=== PATIENT | female | born 1970 | race Two or more races ===

== ENCOUNTER → 2023-12-27 13:18 | Outpatient (REF) | payer BC, SELFPAY | LOC: RAD 13:18 | PROVIDERS: ATTENDING PHYSICIAN Obstetrics & Gynecology Gynecology; FAMILY PHYSICIAN Family Medicine | DX: R93.89 Abnormal findings on diagnostic imaging of other specified body structures (principal) | CPT/HCPCS: 76830; 76856 ==

== ENCOUNTER 2024-06-13 13:06 | Outpatient (RCR) | payer BC, SELFPAY | END 2024-06-13 23:59 | disposition home or self-care (01) | LOC: RPT 13:06 | PROVIDERS: ATTENDING PHYSICIAN Orthopaedic Surgery; FAMILY PHYSICIAN Family Medicine | DX: M54.50 Low back pain, unspecified (principal); M54.51 Vertebrogenic low back pain (principal); Z73.6 Limitation of activities due to disability | CPT/HCPCS: 97110; 97161 ==

== ENCOUNTER 2024-07-22 16:16 | Outpatient (RCR) | payer BC, SELFPAY | END 2024-07-22 23:59 | disposition home or self-care (01) | LOC: RPT 16:16 | PROVIDERS: ATTENDING PHYSICIAN Orthopaedic Surgery; FAMILY PHYSICIAN Family Medicine | DX: M54.51 Vertebrogenic low back pain (principal); Z73.6 Limitation of activities due to disability; R26.2 Difficulty in walking, not elsewhere classified; M62.81 Muscle weakness (generalized) | CPT/HCPCS: 97110; 97112; 97140 ==

== ENCOUNTER 2024-07-25 14:04 | Outpatient (RCR) | payer BC, SELFPAY | END 2024-07-26 07:01 | disposition home or self-care (01) | LOC: RPT 14:04 | PROVIDERS: ATTENDING PHYSICIAN Pain Medicine Interventional Pain Medicine; FAMILY PHYSICIAN Family Medicine | DX: M54.51 Vertebrogenic low back pain (principal); Z73.6 Limitation of activities due to disability | CPT/HCPCS: 97110; 97112; 97140 ==

== ENCOUNTER → 2024-10-03 10:46 | Outpatient (REF) | payer BC, SELFPAY | LOC: RAD 10:46 | PROVIDERS: ATTENDING PHYSICIAN Physician Assistant; FAMILY PHYSICIAN Family Medicine | DX: M25.50 Pain in unspecified joint (principal); M79.641 Pain in right hand | CPT/HCPCS: 73130 ==

== ENCOUNTER → 2025-06-05 06:52 | Outpatient (REF) | payer BC, SELFPAY | LOC: RAD 06:52 | PROVIDERS: ATTENDING PHYSICIAN Family Medicine | DX: E05.90 Thyrotoxicosis, unspecified without thyrotoxic crisis or storm (principal) | CPT/HCPCS: 78014; A9516 ==

== ENCOUNTER 2025-06-22 09:33 | Emergency (ER) | payer BC, SELFPAY ==
[2025-06-22 09:40] VITALS: BP 124/70
[2025-06-22 10:21] VITALS: BMI 26.6
[2025-06-22 10:42] VITALS: BP 104/81
[2025-06-22] MEDS: MAALOX 50 PO (10:42)
--- NOTE | 2025-06-22 10:46 | ED.GENMED ---
History of Present Illness
General
Chief Complaint: Chest Pain
Source: patient
Time Seen by Provider: 06/22/25 09:53
History of Present Illness
History of Present Illness:
55-year-old female with past medical history of recently diagnosed hyperthyroidism, had been started on methimazole and metoprolol, presenting to the emergency department for evaluation of upper abdomen/lower chest pain which initially started as a
more intense pain this morning around 530, has since subsided a little bit but still a pressure-like sensation which is what prompted her to come to the ER. She does note about 2 days ago started feeling a pruritic sensation on her scalp and this
sensation has started to travel throughout the rest of her body. She started taking some Benadryl and Zyrtec, contacted her primary care provider today who advised she stop taking the methimazole and due to the chest discomfort also recommended she
come to the ER. She denies any history of similar. 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 She denies any fevers or infectious symptoms, recent travel, lower extremity pain, cough, hemoptysis, pleurisy or any other concerns.
Past History
Past History
ED Past Medical History: Hyperthyroidism and Psychiatric
ED Past Surgical History: Tonsilectomy
Social History
Tobacco: Non-smoker
Alcohol: Occasional
Drug: None
Personal:
Living: with family
Employment: Employed
Review of Systems
Review of Systems
All Other Systems: ROS reviewed and negative except as documented in HPI and ROS
Phy Exam
Physical Exam
Physical Exam:
GENERAL: Alert , in no apparent distress
HEAD: Normocephalic atraumatic
EYE: conjunctiva clear
NECK: Supple
ENT: o/p clr, mmm.
CARDIAC: Regular rate and rhythm
LUNGS: Clear breath sounds bilaterally, no acute respiratory distress, no wheezes/rales/rhonchi
NEUROLOGICAL: Alert and oriented
SKIN: Warm and dry, skin intact.
MUSCULOSKELETAL: well perfused.
PSYCH: Normal and appropriate interaction.
Scores
Heart Failure Risk
Heart Failure Risk Score: Not Applicable
Heart Score for Chest Pain Patients
STEMI patient?: No
History: Slightly or Non-Suspicious
ECG: Normal
Age: >45 - <65 years
Risk Factors: No Risk Factors
Troponin: </= Normal Limit
Heart Score for Chest Pain Patients: 1
Heart Score Risk: 2.5% MACE over next 6 weeks
Withdrawal Assessment of Alcohol
Withdrawal Assessment Completed?: Not applicable
Course
Orders/Labs/Results
Orders:
Orders
06/22/25 09:34
ECG [Electrocardiogram (*1)] Urgent
Reason for Study: Chest Pain
EKG- Treatment ONCE
06/22/25 10:27
Mag Hydrox/Al Hydrox/Simeth [Maalox] 30 ml Phenobarb/Hyoscy/Atropine/Scop [] 10 ml Viscous Lidocaine 2% [Xylocaine Viscous Cup] 10 ml PO NOW
06/22/25 10:36
Complete Blood Count/With Diff Urgent
Comprehensive Metabolic Panel Urgent
D-Dimer Urgent
Lipase Urgent
Troponin I Urgent
06/22/25 10:38
Mag Hydrox/Al Hydrox/Simeth [Maalox] 30 ml .ROUTE .STK-MED ONE
Phenobarb/Hyoscy/Atropine/Scop [] 10 ml .ROUTE .STK-MED ONE
06/22/25 10:39
Viscous Lidocaine 2% [Xylocaine Viscous Cup] 15 ml .ROUTE .STK-MED ONE
06/22/25 11:08
Acetaminophen [Tylenol] 650 mg PO NOW STA
06/22/25 11:09
Acetaminophen [Tylenol] 650 mg .ROUTE .STK-MED ONE
CR Chest - 2 Views Urgent
Comment:
Reason For Exam: upper abd/chest pain
06/22/25 12:43
Troponin I Urgent
Abnormal Lab Results
06/22/25
10:36
WBC 4.4 L 10^3/uL
(4.8-10.8)
Hct 36.7 L %
(37.0-47.0)
MCV 76.9 L fL
(81.0-99.0)
MCH 25.6 L pg
(27.0-31.0)
Absolute Lymphs (auto) 0.9 L 10^3/uL
(1.2-3.4)
ALT 46 H U/L
(0-35)
Total Protein 6.0 L g/dl
(6.3-8.2)
06/22/25 10:36
06/22/25 10:36
Vital Signs
Initial and Last Documented VS:
Initial Vital Signs
Temp Pulse Resp BP Pulse Ox
97.6 F 91 18 124/70 95
06/22/25 09:40 06/22/25 09:40 06/22/25 09:40 06/22/25 09:40 06/22/25 09:40
Last Documented Vital Signs
Temp Pulse Resp BP Pulse Ox
97.6 F 82 16 106/46 100
06/22/25 09:40 06/22/25 13:15 06/22/25 13:15 06/22/25 13:00 06/22/25 13:15
MDM/Problems Addressed
Differential Diagnosis Includes:
Gastritis
GERD
Hiatal hernia
ACS
PE
Medication side effect
Dissection/aneurysm
Pericarditis/myocarditis
Pancreatitis
Cholecystitis
MDM/Problems Addressed:
55-year-old female presenting to the ER for evaluation of upper abdominal/chest discomfort which began this morning around 530. Secondary symptoms of potential allergic reaction to methimazole which she started 2 and half weeks ago for
hyperthyroidism. She did take some Benadryl and Zyrtec for the itching which she states does give her some relief. Patient hemodynamically stable. EKG done in triage is normal sinus rhythm without ectopy or ischemic changes. Will check labs
including D-dimer and troponin. Green grabber ordered for possible GI irritation. Disposition pending
Chronic conditions affecting care: Other (Hyperthyroidism)
*Radiology
Radiology exam reviewed: preliminary read by ED provider (Normal chest x-ray)
*Pulse Oximetry
SaO2: 98
Oxygen Mode of Delivery: Room air
Patient hypoxic: no
*EKG
Heart Rate: 90
Rate: normal
Rhythm: sinus
[place]: normal axis
Ischemia: no ischemia
*Applications Specialist Interpretation
Rate: normal
Heart Rate: 84
Rhythm: sinus
*Critical Care Note
Total Time (30-74mins, 75-104mins- exclusive of procedures): Not Applicable
Patient Management
Escalation/DeEscalation of care consider admission/obs:
Patient's workup reassuring. Labs are unremarkable, 2 negative troponins, nonischemic EKG and normal chest x-ray. Patient referred to the chest pain hotline for an expedited outpatient follow-up. Patient will trial Pepcid for possible
GERD/gastritis as well as this may help with some of the pruritus she is having. She is aware of return precautions to the ER but otherwise stable for discharge
ED Attending Note
-
Portions of this chart may have been created with voice recognition software.� Occasional wrong word or��sound alike� substitutions may have occurred due to the inherent limitations of voice recognition software.
Discharge Plan
Departure
Patient Disposition: Home (Routine Discharge)
Date of Disposition: 06/22/25
Time of Disposition: 13:27
Patient with high blood pressure during this ER visit?: No
Discharge Problem:
Chest pain
Instructions: Chest Pain DCA Follow Up
Prescriptions:
No Action
diphenhydramine HCl [Benadryl] 50 mg Capsule
50 mg PO HS PRN (Reason: allergy)
metoprolol tartrate 50 mg Tablet
50 mg PO BID
methimazole 10 mg Tablet
10 mg PO TID
escitalopram oxalate [Lexapro] 10 mg Tablet
10 mg PO DAILY
cholecalciferol (vitamin D3) [Vitamin D3] 50 mcg (2,000 unit) Capsule
50 mcg PO DAILY
Zyrtec 10 mg Capsule
10 mg PO DAILY PRN (Reason: allegy)
red [id number] mg Capsule
1 cap PO DAILY
turmeric
1 tab PO DAILY
Referrals:
Giorgio Smith MD [Family Provider, Family Practice]
Interventions
Interventions:
*Risk Screen - Suicide Last Done: 06/22/25 09:40
*General Assessment Last Done: 06/22/25 09:40
*Neglect/Abuse Screening Last Done: 06/22/25 10:22
*ED- Fall Risk Assessment Last Done: 06/22/25 10:22
*ED COVID-19 Vaccine History Last Done: 06/22/25 10:22
*Nursing Disposition Last Done: 06/22/25 13:50
ED- Cardiac Assessment Last Done: 06/22/25 10:23
Discharge Date and Time
Discharge Date/Time: 06/22/25 13:50
Print Language: ARMENIAN
[2025-06-22 10:53] LABS: Hematocrit 36.7 % (37.0-47.0); Hemoglobin 12.2 g/dL (12.0-16.0); Mean Corp Hgb Conc. 33.2 g/dL (33.0-37.0); Mean Corpuscular Volume 76.9 fL (81.0-99.0); Nucleated Red Blood Cells % 0 %; Platelet Count 169 10^3/uL (130-400); Red Cell Dist. Width 12.2 % (11.5-14.5)
[2025-06-22 11:00] VITALS: BP 109/63
[2025-06-22 11:00] LABS: ALT (SGPT) 46 U/L (0-35); AST (SGOT) 31 U/L (14-36); Albumin 4.0 g/dl (3.5-5.0); Alkaline Phosphatase 58 U/L (38-126); Blood Urea Nitrogen 12 mg/dl (7-17); Calcium 9.5 mg/dl (8.4-10.2); Carbon Dioxide 29 mmol/L (22-30); Chloride 105 mmol/L (98-107); D-Dimer 0.47 ug/mlFEU (0.00-0.50); Estimated Creatinine Clearance 104 ml/min; Glucose 94 mg/dl (70-99); Lipase 82 U/L (23-300); Potassium 4.1 mmol/L (3.5-5.1); Sodium 138 mmol/L (135-145); Total Protein 6.0 g/dl (6.3-8.2); eGFR > 60.00
[2025-06-22 11:11] LABS: Troponin I < 0.012 ng/ml
[2025-06-22] MEDS: TYLENOL 650 MG PO (11:12)
[2025-06-22 12:07] VITALS: BP 112/56
[2025-06-22 13:00] VITALS: BP 106/46
[2025-06-22 13:21] LABS: Troponin I < 0.012 ng/ml
== END 2025-06-22 13:50 | disposition home or self-care (01) ==
LOC: EMR 09:33
PROVIDERS: Physician Assistant Medical; EMERGENCY PHYSICIAN Emergency Medicine; FAMILY PHYSICIAN Family Medicine
DX: R07.89 Other chest pain (principal); E05.90 Thyrotoxicosis, unspecified without thyrotoxic crisis or storm; D68.2 Hereditary deficiency of other clotting factors
CPT/HCPCS: 99283; 71046; 80053; 83690; 84484; 85025; 85379; 93005

== ENCOUNTER → 2025-08-04 15:09 | Outpatient (REF) | payer BC, SELFPAY | LOC: RCS 15:09 | PROVIDERS: ATTENDING PHYSICIAN Family Medicine | DX: R07.9 Chest pain, unspecified (principal) | CPT/HCPCS: 93017 ==

== ENCOUNTER 2025-09-02 06:25 | Day surgery (SDC) | payer BC, SELFPAY ==
[2025-09-02 13:45] VITALS: BP 111/69; BMI 26.3
[2025-09-02] MEDS: NORMOSOL-R/PLASMALYTE-A 1000 IV (14:05)
[2025-09-02] MEDS: NEURONTIN 300 MG PO (14:18)
[2025-09-02] MEDS: TYLENOL 1000 MG PO (14:18)
[2025-09-02] MEDS: HEPARIN 5000 UNITS SC (14:23)
[2025-09-02 17:03] VITALS: BP 136/81
[2025-09-02 17:15] VITALS: BP 130/84
[2025-09-02] MEDS: DILAUDID 0.5 MG IV (17:15)
[2025-09-02 17:30] VITALS: BP 125/79
[2025-09-02 17:45] VITALS: BP 157/89
[2025-09-02 18:00] VITALS: BP 138/81
--- NOTE | 2025-09-02 20:09 | OR.RPT ---
Operative Report
Operative Report
DATE OF OPERATION: September 02, 2025
PREOPERATIVE DIAGNOSIS: Thyroid Hyperthyroidism w crisis - E0501
POSTOPERATIVE DIAGNOSIS: Same
SURGEON: Marcellus To M.D.
OPERATION: Total Thyroidectomy � 87536
Autotransplant of the right inferior parathyroid gland - [id number]
ANESTHESIA: GET
ESTIMATED BLOOD LOSS: 10 cc
DRAINS: None
SPECIMEN: total thyroid
COMPLICATIONS: None
PROCEDURE:
The patient was taken to the operating room and placed in the usual supine position. After adequate general endotracheal anesthesia was established, the patient�s neck was extended, prepped, and draped in the typical sterile fashion. A 4 cm
transcervical incision was made two fingerbreadths above the sternal notch. The skin incision was made with the #15 blade, which was taken through the skin into the subcutaneous tissue. The underlying platysma muscle was divided, and subplatysmal
flaps were created superiorly to the thyroid cartilage and inferiorly to the sternal notch. Strap muscles were identified and at the midline.
First, attention was turned to the patient�s left thyroid lobe. The left thyroid lobe was mobilized medially. During this process, the left middle thyroid vein and inferior thyroid artery were dissected and ligated with Ligasure. Next, the left
superior pole was taken down by dissecting and transecting the superior pole vessels with a Ligasure. The left thyroid lobe was mobilized medially. During this process, the left recurrent laryngeal nerve was identified and preserved throughout its
entire course. The left superior and inferior parathyroid glands was identified and preserved.
Next, attention was turned to the patient�s right thyroid lobe. The right thyroid lobe was mobilized medially. During this process, the right middle thyroid vein and inferior thyroid artery were dissected and ligated with Ligasure. Next, the right
superior pole was taken down by dissecting and transecting the superior pole vessels with a Ligasure. The right thyroid lobe was mobilized medially. During this process, the right recurrent laryngeal nerve was identified and preserved throughout its
entire course. The right inferior parathyroid gland was identified, but it appeared to be ischemia. Therefore, a decision was made to autotransplant the gland. The gland was removed, minced with a #10 blade, and then autotransplanted into the right
SCM muscle. The total thyroid was resected from the trachea and sent to the pathology department.
After achieving adequate hemostasis, the strap muscle was approximated with #3-0 Vicryl in a running fashion, and the platysma muscles were reapproximated with #3-0 Vicryl in an interrupted manner. The skin was then closed with #4-0 Monocryl in a
running subcuticular technique. Steri-strips and sterile dressings were applied. The patient tolerated the procedure well. The final instrument, needle, and sponge counts were correct.
== END 2025-09-02 19:18 | disposition home or self-care (01) ==
LOC: SDS 06:25
PROVIDERS: ATTENDING PHYSICIAN Surgery
DX: E05.01 Thyrotoxicosis with diffuse goiter with thyrotoxic crisis or storm (principal)
CPT/HCPCS: 60240; 88307; 88311

== ENCOUNTER → 2025-10-22 10:22 | Outpatient (REF) | payer BC, SELFPAY | LOC: RAD 10:22 | PROVIDERS: ATTENDING PHYSICIAN Nurse Practitioner Family; FAMILY PHYSICIAN Family Medicine | DX: J11.1 Influenza due to unidentified influenza virus with other respiratory manifestations (principal); J18.9 Pneumonia, unspecified organism | CPT/HCPCS: 71046 ==